=== PATIENT | female | born 1980 | race Two or more races ===

== ENCOUNTER 2025-04-21 23:27 | Emergency (ER) | payer MEDICAID, OTHER ==
[~2025-04-21] VITALS: Ht 162.6 cm; Wt 85.0 kg
[2025-04-22 00:06] LABS: Hematocrit 34.2 % (36.0-46.0); Nucleated Red Blood Cells % 0.0 %
[2025-04-22 00:08] LABS: Hemoglobin 11.0 g/dL (12.2-16.2); Mean Corpuscular Hemoglobin 23.9 pg (28.0-32.0); Mean Corpuscular Volume 74.2 fL (80.0-100.0)
--- NOTE | 2025-04-22 00:09 | ED.PDOC ---
GI ASSESSMENT HPI Comments 44-year-old female came to the ER for abdominal pain. Patient states past 2 hours, she has been experiencing right upper quadrant abdominal pain, radiating to her right lower quadrant, associated with nausea, vomited 4 times, has been having episodes of dysuria as well. Patient has history of diabetes Chief Complaint: Abdominal Pain Time Seen by MD: 00:06 Reviewed Notes: Nurses Notes Allergies: Coded Allergies: NO KNOWN ALLERGIES (Unverified , 04/21/25) Information Source: Patient Mode of Arrival: Ambulatory Timing: Hours Duration: Since onset Prehospital treatment: None Quality: None Past Medical History PAST MEDICAL HISTORY: DM Surgical History: Denies all surgeries SAMPLER RADIOACTIVE WASTE History: Denies all SAMPLER RADIOACTIVE WASTE Hx LMP Current Family History Family History: Reviewed,noncontributory to illness Social History Smoker: Non-Smoker Alcohol: Denies ETOH Use Drugs: Denies Drug Use Lives In: Home Constitutional: denies: chills, diaphoresis, fatigue, fever, malaise, sweats, weakness, others Respiratory: denies: cough, hemoptysis, orthopnea, SOB at rest, shortness of breath, SOB with excertion, stridor, wheezing, others Cardiovascular: denies: chest pain, dizzy spells, diaphoresis, Dyspnea on exertion, edema, irregular heart beat, left arm pain, lightheadedness, palpitations, PND, syncope, others Gastrointestinal: reports: abdominal pain, nausea, vomiting; denies: abdomen distended, blood streaked bowels, constipated, diarrhea, dysphagia, difficulty swallowing, hematemesis, melena, poor appetite, poor fluid intake, rectal bleeding, rectal pain, others Genitourinary: reports: dysuria; denies: abnormal vagina bleeding, burning, dyspareunia, flank pain, frequency, hematuria, incontinence, pain, , vagina discharge, urgency, others Neurological: denies: dizziness, fainting, headache, left sided numbness, left sided weakness, numbness, paresthesia, pre-existing deficit, right sided numbness, right sided weakness, seizure, speech problems, tingling, tremors, weakness, others Musculoskeletal: denies: back pain, gout, joint pain, joint swelling, muscle pain, muscle stiffness, neck pain, others Integumetry: denies: bruises, change in color, change in hair/nails, dryness, laceration, lesions, lumps, rash, wounds, others Allergic/Immunocompromised: denies: Difficulty Healing, Frequent Infections, Hives, Itching, others Hematologic/Lymphatic: denies: anemia, blood clots, easy bleeding, easy bruising, swollen glands, others Endocrine: denies: excessive hunger, excessive sweating, excessive thirst, excessive urination, flushing, intolerance to cold, intolerance to heat, unexplained weight gain, unexplained weight loss, others Psychiatric: denies: anxiety, bipolar disorder, depression, hopeless, panic disorder, schizophrenia, sleepless, suicidal, others Physical Exam General Appearance: No Apparent Distress, Normal HEENT: Normal ENT Inspection, Pharynx Normal, TMs Normal Neck: Full Range of Motion, Non-Tender, Normal, Normal Inspection Respiratory: Chest Non-Tender, Lungs Clear, No Accessory Muscle Use, No Respiratory Distress, Normal Breath Sounds Cardiovascular: No Edema, No JVD, No Murmur, No Gallop, Normal Peripheral Pulses, Regular Rate/Rhythm Breast Exam: Deferred Gastrointestinal: No Organomegaly, Non Tender, No Pulsatile Mass, Normal Bowel Sounds, Soft Genitalia: Deferred Pelvic: Deferred Rectal: Deferred Extremities: No calf tenderness, Normal capillary refill, Normal inspection, Normal range of motion, Non-tender, No pedal edema Musculoskeletal : Apperance: Normal Neurologic: Alert, cuff maker II-XII nml as Tested, No Motor Deficits, Normal Affect, Normal Mood, No Sensory Deficits Cerebellar Function: Normal Reflexes: Normal Skin: Dry, Normal Color, Warm Lymphatic: No Adenopathy Was a procedure done? Was a procedure done?: No GI differential Dx Differential Diagnosis: Diverticular disease, Gastritis/PUD, Gastroenteritis, Pancreatitis, UTI, Urolithiasis, Electrolyte Imbalance, Food Poisoning X-Ray, Labs, Meds, VS Vital Signs Date Time Temp Pulse Resp B/P (MAP) Pulse Ox O2 Delivery O2 Flow Rate FiO2 04/21/25 23:29 75 20 136/98 98 Lab Test 04/22/25 01:00 04/21/25 23:56 Range/Units Urine Color Colorless Yellow Urine Clarity Clear Clear Urine pH 8.0 5.0-9.0 Urine Specific [place] 1.009 1.001-1.035 Urine Protein Negative Negative Urine Ketones Trace Negative Urine Blood 3+ H Negative /uL Urine Nitrite Negative Negative Urine Bilirubin Negative Negative Urine Urobilinogen Normal Negative mg/dL Urine Leukocyte Esterase Negative Negative /uL Urine RBC 10 0 - 4 /hpf Urine Microscopic WBC 1 0-5 /HPF Urine Squamous Epithelial Cells Few <5 /hpf Urine Bacteria None seen None Seen /hpf Urine Mucus Few None Seen Urine Glucose 1+ H Normal mg/dL Urine Test Negative Negative White Blood Count 8.1 4.4-10.8 10^3/uL Red Blood Count 4.61 4.0-5.20 10^6/uL Hemoglobin 11.0 L 12.2-16.2 g/dL Hematocrit 34.2 L 36.0-46.0 % Mean Corpuscular Volume 74.2 L 80.0-100.0 fL Mean Corpuscular Hemoglobin 23.9 L 28.0-32.0 pg Mean Corpuscular Hemoglobin Concent 32.3 32.0-36.0 g/dL Red Cell Distribution Width 17.6 H 11.8-14.3 % Platelet Count 312 140-450 10^3/uL Mean Platelet Volume 8.2 6.9-10.8 fL Neutrophils (%) (Auto) 78.4 37.0-80.0 % Lymphocytes (%) (Auto) 15.5 10.0-50.0 % Monocytes (%) (Auto) 4.6 0.0-12.0 % Eosinophils (%) (Auto) 0.7 0.0-7.0 % Basophils (%) (Auto) 0.8 0.0-2.0 % Neutrophils # (Auto) 6.4 1.6-8.6 10 ^3/uL Lymphocytes # (Auto) 1.3 0.4-5.4 10 ^3/uL Monocytes # (Auto) 0.4 0-1.3 10 ^3/uL Eosinophils # (Auto) 0.1 0-0.8 10 ^3/uL Basophils # (Auto) 0.1 0-0.2 10 ^3/uL Nucleated Red Blood Cells 0.0 % Sodium Level 142 136-145 mmol/L Potassium Level 3.3 L 3.5-5.1 mmol/L Chloride Level 107 98-107 mmol/L Carbon Dioxide Level 23 20-31 mmol/L Anion Gap 12 5-15 Blood Urea Nitrogen 10 9-23 mg/dL Creatinine 0.83 0.550-1.02 mg/dL Glomerular Filtration Rate Calc 89 >90 mL/min BUN/Creatinine Ratio 12.0 10.0-20.0 Serum Glucose 205 H 74-106 mg/dL Calcium Level 9.9 8.7-10.4 mg/dL Time of 1ST Reevaluation: 00:00 Reevaluation 1ST: Unchanged Patient Education/Counseling: Diagnosis, Treatment Family Education/Counseling: Diagnosis, Treatment Comments Patient is found to have a small ureteral stone. No signs of pyelonephritis. Patient will be prescribed pain medication and Flomax she is stable to go home. SEPSIS Sepsis Screen Date sepsis recognized/suspect: Apr 21, 2025 Time Sepsis recognized/suspect: 2331 Recent Procedure: No On Antibiotic Therapy: No Respiratory Rate >20: No Heart Rate >90: No Temp<36 C (96.8 F) or >38.3 C: No SBP <90 or MAP <65 mmHG: No New Acute Mental Status Change: No Is the patient on CPAP, BIPAP,: No Physician Orders Ct Ab Pel Wo Con-No Oral Or Iv (04/21/25 23:50) Vital Signs Date Time Temp Pulse Resp B/P (MAP) Pulse Ox O2 Delivery O2 Flow Rate FiO2 04/21/25 23:29 75 20 136/98 98 Laboratory Tests Test 04/21/25 23:56 White Blood Count 8.1 10^3/uL (4.4-10.8) Departure 1 Departure Time of Disposition: 03:05 Impression: Primary Impression: Kidney stone Disposition: 01 HOME / SELF CARE / HOMELESS Condition: Good e-Prescriptions Tamsulosin Hcl (Flomax) 0.4 Mg Cap 1 CAP PO DAILY for 10 Days, #10 CAP 11 Refills Prov: PAUL DUEÑAS MD 04/22/25 Hydrocodone-Acetaminophen (Hydrocodone Bitartrate/AC 5-325 mg) 1 Tab Tab 1 TAB PO Q6HP PRN for 3 Days, #12 TAB Prov: PAUL DUEÑAS MD 04/22/25 Discharged With: Self Critical Care Note Critical Care Time?: No Stability Stability form required: No Heart Score Heart Score: Heart Score Response (Comments) Value History N/A 0 EKG N/A 0 Age N/A 0 Risk Factors N/A 0 Troponin N/A 0 Total 0 I personally scribed for PAUL DUEÑAS MD ([email or web address]) on 04/22/25 at 00:09. Electronically submitted by Dequan Shrestha ([facility]). PAUL DUEÑAS MD Apr 22, 2025 00:09
[2025-04-22 00:15] LABS: Chloride 107 mmol/L (98-107); Sodium 142 mmol/L (136-145)
[2025-04-22 00:16] LABS: Anion Gap 12 (5-15); Calcium 9.9 mg/dL (8.7-10.4); Carbon Dioxide 23 mmol/L (20-31); Potassium 3.3 mmol/L (3.5-5.1)
[2025-04-22 00:21] LABS: BUN/Creatinine Ratio 12.0 (10.0-20.0); Blood Urea Nitrogen 10 mg/dL (9-23)
[2025-04-22 00:26] LABS: Glucose 205 mg/dL (74-106)
--- NOTE | 2025-04-22 01:25 | DVH ---
Exam: CT CT AB PEL WO CON-NO ORAL OR IV History: r/o sppy Comparison Study: None Technique: Multidetector spiral CT of the abdomen was performed from lung bases to pubic symphysis. I maging was performed without IV contrast. Axial, coronal and sagittal multiplanar reformats were obta ined from the axial data set by the technologist. Radiation Dose : 1. Abdomen/Pelvis: CTDIvol 14.21 mGy, DLP 14.21 mGy*cm. Findings: Evaluation of solid organs is limited due to lack of intravenous contrast use. Lung Bases: Mild basilar scarring/atelectasis. Liver: Borderline hypoattenuation. Gallbladder and Biliary Tree: Unremarkable Pancreas: Unremarkable. Spleen: Unremarkable Adrenal Glands: Unremarkable Kidneys/Ureters: A 2 mm stone at the right ureterovesicular junction is associated with mild hydroure teronephrosis, perinephric and periureteral stranding. The left kidney and ureter unremarkable. Bladder: Right UVJ stone as above. No wall thickening Pelvic Organs: Unremarkable Bowel: Normal caliber without wall thickening. Normal appendix. Vasculature: Unremarkable. Lymphadenopathy: No obvious adenopathy. Peritoneum: No ascites, free air, or fluid collection. Abdominal Wall: Small fat containing umbilical hernia. Musculoskeletal: No acute findings. IMPRESSION: 1. Normal appendix. 2. A 2 mm stone at the right UVJ is associated with mild obstructive uropathy. Superimposed upper tr act infection is possible. Radiation optimization: All CT scans at this facility use at least one of these dose optimization ryan hniques: automated exposure control mA and/or kV adjustment per patient size (includes targeted exam s where dose is matched to clinical indication) or iterative reconstruction.
[2025-04-22 02:27] LABS: Urine Protein, UAD Negative (Negative)
[2025-04-22] MEDS ORDERED: HYDR-4902 PO (03:06)
[2025-04-22] MEDS ORDERED: TAMS-35 PO (03:06)
[2025-04-22 04:26] VITALS: BP 158/88; PULSE 63; RESP 18; TEMP 98; O2SAT 96
== END 2025-04-22 04:30 | disposition home or self-care (01) ==
LOC: ER 23:27
DX: N20.0 Calculus of kidney (principal); E11.9 Type 2 diabetes mellitus without complications
CPT/HCPCS: 36415; 74176; 80048; 81001; 81025; 85025